=== PATIENT | female | born 1990 | race Caucasian/White ===

== ENCOUNTER 2023-06-20 01:51 | Inpatient (IN) | payer OTHER ==
[~2023-06-20] VITALS: Ht 160 cm; Wt 64.0 kg
[2023-06-20] MEDS ORDERED: PRETAB PO (02:50)
[2023-06-20 02:52] VITALS: BP 113/58; PULSE 58; RESP 18; TEMP 98.3
[2023-06-20 03:43] LABS: APPEARANCE,URINE CLEAR (CLEAR); BILIRUBIN,URINE NEGATIVE (NEGATIVE); BLOOD, URINE TRACE-I (NEGATIVE); COLOR,URINE YELLOW (YELLOW); LEUKOCYTE ESTERASE ,URINE NEGATIVE (NEGATIVE); NITRITE, URINE NEGATIVE (NEGATIVE); PROTEIN,URINE NEGATIVE (NEGATIVE); UGLUCOSE NEGATIVE (NEGATIVE); UROBILINOGEN,URINE 0.2 EU/dL (0.2 - 1)
[2023-06-20 03:47] LABS: AMPHETAMINE, URINE NEGATIVE ng/ml (NEG <=1000); BARBITURATE, URINE NEGATIVE ng/ml (NEG <=200); BENZODIAZEPINE, URINE NEGATIVE ng/mL (NEG <=200); COCAINE, URINE NEGATIVE ng/mL (NEG <=300)
[2023-06-20 03:48] LABS: CANNABINOID, URINE NEGATIVE ng/mL (NEG <=50); OPIATE, URINE NEGATIVE ng/mL (NEG <=2000); PHENCYCLIDINE SCREEN,URINE NEGATIVE ng/mL (NEG <=25)
[2023-06-20] MEDS ORDERED: AMPICILLIN 2,000 MG in NACL 0.9% MINI-BAG PLUS 100 ML IV SCH (03:50)
[2023-06-20] MEDS ORDERED: CARBOPROST 250 MCG/ML AMP IM PRN (03:50)
[2023-06-20] MEDS ORDERED: NALBUPHINE 10 MG/ML AMP IVP PRN (03:50)
[2023-06-20] MEDS ORDERED: METHYLERGONOVINE 0.2 MG/ML AMP IM PRN ×2 (03:50→21:45)
[2023-06-20] MEDS: LACTATED RINGERS 1,000 ML IV SCH ×2 (04:44→15:30)
[2023-06-20] MEDS ORDERED: AMPICILLIN 2,000 MG VIAL ONE (04:49)
[2023-06-20] MEDS ORDERED: ONDANSETRON 4 MG/2 ML VIAL IVP PRN (05:20)
[2023-06-20 06:04] LABS: BASOPHILS # (AUTO) 0.1 K/uL (0.00-0.22); BASOPHILS % (AUTO) 0.8 % (0.0-2.0); EOSINOPHILS # (AUTO) 0.5 K/uL (0-0.4); EOSINOPHILS % (AUTO) 5.6 % (0.0-4.0); HEMATOCRIT 36.1 % (36-48); LYMPHOCYTES # (AUTO) 2.5 K/uL (2.5-16.5); LYMPHOCYTES % (AUTO) 27.8 % (20.5-51.1); MEAN CORPUSCULAR HEMOGLOBIN 29 pg (27-31); MEAN CORPUSCULAR HGB CONC 33 g/dL (33-37); MEAN CORPUSCULAR VOLUME 86.5 fL (80-94); MONOCYTES # (AUTO) 0.5 K/uL (0.8-1.0); MONOCYTES % (AUTO) 5.8 % (1.7-9.3); NEUTROPHILS # (AUTO) 5.3 K/uL (1.8-7.7); PLATELET COUNT (AUTO) 232 K/uL (140-450); RED BLOOD CELL COUNT(AUTO) 4.18 MIL/uL (4.20-5.40); RED CELL DISTRIBUTION WIDTH 13.6 % (11.6-13.7); WHITE BLOOD COUNT (AUTO) 8.9 K/uL (4.8-10.8)
[2023-06-20 06:09] LABS: ALBUMIN 2.4 g/dL (3.4-5.0); ANION GAP 15.6 (8-16); CALCIUM 8.4 mg/dL (8.5-10.1); CARBON DIOXIDE 21.1 mmol/L (21-32); CREATININE 0.5 mg/dL (0.6-1.3); INR 0.88 (0.8-1.2); PARTIAL THROMBOPLASTIN TIME 25.6 secs (22-35.6); POTASSIUM 3.7 mmol/L (3.5-5.1); PROTHROMBIN TIME 9.3 secs (10.8-13.4); TOTAL BILIRUBIN 0.3 mg/dL (0.0-1.0); TOTAL PROTEIN, SERUM 6.5 g/dL (6.4-8.2)
[2023-06-20] MEDS ORDERED: AMPICILLIN 1,000 MG VIAL ONE ×4 (09:12→21:20)
[2023-06-20] MEDS: AMPICILLIN 1,000 MG in NACL 0.9% MINI-BAG PLUS 50 ML IV SCH ×4 (09:15→21:27)
[2023-06-20] MEDS ORDERED: OXYTOCIN 20 UNITS/LR PREMIX 1,000 ML IV ONE (10:25)
[2023-06-20] MEDS ORDERED: OXYTOCIN 20 UNITS in LACTATED RINGERS 1,000 ML IV SCH (10:25)
[2023-06-20] MEDS ORDERED: MORPHINE SULFATE 10 MG/ML VIAL ONE (20:06)
[2023-06-20] MEDS ORDERED: MORPHINE SULFATE 10 MG/ML VIAL IVP PRN (20:10)
[2023-06-20 20:58] VITALS: BP 135/53; PULSE 68; RESP 18
[2023-06-20] MEDS ORDERED: NALOXONE 0.4 MG/ML VIAL ONE (21:24)
[2023-06-20] MEDS ORDERED: METHYLERGONOVINE 0.2 MG TAB PO PRN (21:45)
[2023-06-20] MEDS ORDERED: BENZOCAINE/MENTHOL 20%-0.5% 60 GM CAN TP PRN (21:45)
[2023-06-20] MEDS ORDERED: TEMAZEPAM 15 MG CAP PO PRN (21:45)
[2023-06-20] MEDS ORDERED: OXYTOCIN 10 UNITS/ML VIAL IM PRN (21:45)
[2023-06-20] MEDS ORDERED: oxyCODONE/APAP 5/325 MG 1 TAB TAB PO PRN ×2 (21:45)
[2023-06-21] MEDS ORDERED: DOCUSATE SOD/SENNA 50/8.6 MG 1 TAB PO SCH (21:00)
[2023-06-21] MEDS: IBUPROFEN 800 MG TAB PO PRN (21:35)
[2023-06-21 21:40] LABS: HEMATOCRIT 35.3 % (36-48); HEMOGLOBIN 11.8 g/dL (12.0-16.0)
[2023-06-22] MEDS: IBUPROFEN 800 MG TAB PO PRN (05:37)
== END 2023-06-22 14:40 | disposition home or self-care (01) | DRG 560 ==
LOC: MLD 01:56 → OBSVTOIN 04:53 → MFCC 06-21 00:02
PROVIDERS: ADMIT Obstetrics & Gynecology; ATTEND Obstetrics & Gynecology
PROC: 10D07Z6 Extraction of Products of Conception, Vacuum, Via Natural or Artificial Opening (ICD-10-PCS; principal; 2023-06-20)
PROC: 3E033VJ Introduction of Other Hormone into Peripheral Vein, Percutaneous Approach (ICD-10-PCS; 2023-06-20)
DX: O42.92 Full-term premature rupture of membranes, unspecified as to length of time between rupture and onset of labor (principal); Z37.0 Single live birth; O41.03X0 Oligohydramnios, third trimester, not applicable or unspecified; O24.429 Gestational diabetes mellitus in childbirth, unspecified control; Z3A.39 39 weeks gestation of pregnancy; O99.824 Streptococcus B carrier state complicating childbirth; O75.81 Maternal exhaustion complicating labor and delivery
CPT/HCPCS: 36415; 76815; 80053; 80305; 81003; 85018; 85025; 85610; 85730; 86592; 86886; 86900; 86901; J0290; J2270; J2300; J2310; J2405; J2590; J7120